=== PATIENT | male | born 1945 | race Caucasian/White ===

== ENCOUNTER 2019-02-02 17:09 | Emergency (ER) | payer MEDICARE ==
[2019-02-02] MEDS ORDERED: SODIUM CHLORIDE 0.9% 1,000 ML IV STA (17:16)
--- NOTE | 2019-02-02 17:17 | ED ---
Weakness HPI - General Stated complaint: Weakness Time Seen by Provider: 02/02/19 17:12 Source: RN notes reviewed, old records reviewed - History of Present Illness Initial comments: This is a 73-year-old male to the ER for evaluation. This male presents today for evaluation in regards to illogical complaint. Patient was shopping, onset of symptoms he believes were around 1630. Patient was walking to his car and had slurred speech left arm weakness left leg weakness, not feel comfortable driving called EMS and was brought to emergency room for evaluation. Patient denies history of CVA. Does have history of heart disease, not currently on blood thinners. No recent trauma or surgery MD Complaint: focal weakness (L face, L leg, L arm) -: hour(s) (1.5) Location: LUE, LLE, face (Left) Severity: moderate Severity scale (1-10): 4 Quality: numbness, other (weakness) Consistency: constant Improves with: none Worsens with: none Associated Symptoms: denies other symptoms - Related Data Home Medications Medication Instructions Recorded Confirmed ALPRAZolam [Xanax] 0.25 mg PO HS PRN 02/20/15 02/02/19 Potassium Chloride [Klor-Con 20] 20 meq PO BID 02/20/15 02/02/19 Pramipexole Di-HCl [Mirapex] 1.5 mg PO HS 02/20/15 02/02/19 Simvastatin [Zocor] 10 mg PO QAM 02/20/15 02/02/19 Amiodarone HCl [Pacerone] 100 mg PO DAILY 02/02/19 02/02/19 DULoxetine HCL [Cymbalta] 60 mg PO BID 02/02/19 02/02/19 Gabapentin [Neurontin] 100 mg PO TID 02/02/19 02/02/19 HYDROcodone/APAP 5-325MG [Kirvin 1 tab PO Q4H 02/02/19 02/02/19 5-325] Hydrocortisone 10 mg PO DIRECTED 02/02/19 02/02/19 Hydrocortisone 15 mg PO DAILY 02/02/19 02/02/19 Levothyroxine Sodium [Synthroid] 112 mcg PO DAILY 02/02/19 02/02/19 Memantine [Namenda] 10 mg PO BID 02/02/19 02/02/19 Midodrine [ProAmatine] 7.5 mg PO TID 02/02/19 02/02/19 Mirabegron [Myrbetriq] 50 mg PO DAILY 02/02/19 02/02/19 Nitroglycerin Sl Tabs [Nitrostat] 0.4 mg SL Q5M 02/02/19 02/02/19 Omeprazole [PriLOSEC] 40 mg PO DAILY 02/02/19 02/02/19 Allergies Allergy/AdvReac Type Severity Reaction Status Date / Time TAPE Allergy KAPLAN Uncoded 07/27/15 14:07 SKINS-PAPER TAPE IS OK Review of Systems ROS Statement: Those systems with pertinent positive or pertinent negative responses have been documented in the HPI. ROS Other: All systems not noted in ROS Statement are negative. Past Medical History Past Medical History: Coronary Artery Disease (CAD), Heart Failure, Osteoarthritis (OA), Prostate Disorder, Thyroid Disorder Additional Past Medical History / Comment(s): HIATAL HERNIA, MULTIPLE INTUSSUSCEPTIONS IN LOWER SM. BOWEL. BPH,HYPOTENSION, CURRENT INGUINAL HERNIA History of Any Multi-Drug Resistant Organisms: MRSA Date of last positivie culture/infection: 2012 MDRO Source:: RT SHOULDER REPLACEMENT INCISION INFECTION Past Surgical History: Back Surgery, Bariatric Surgery, Cholecystectomy, Heart Catheterization, Heart Catheterization With Stent, Hernia Repair, Joint Replacement, Orthopedic Surgery, Pacemaker Additional Past Surgical History / Comment(s): TAMMI-EN-Y,LAMINECTOMY,LT TKA X2,RT TKA,LT SHAMA X2,I & D LT HIP,RT SHOULDER REPLACEMENT,PANNICULE CTOMY,PACEMAKERX2,TA CATARACTS HERNIA REPAIR X2, 10-8-15 lap inguinal hernia repair Past Anesthesia/Blood Transfusion Reactions: Previous Problems w/ Anesthesia Additional Past Anesthesia/Blood Transfusion Reaction / Comment(s): HAS TROUBLE REGULATING LOW B/P AFTER SURGERY, HAS NEVER HAD BLOOD TRANSFUSION. Date of Last Stent Placement:: FEBRUARY 2001 Type of Cardiac Device: Permanent Pacemaker Device Placement Date:: JUN 2013 Past Psychological History: Anxiety, Depression Smoking Status: Former smoker Past Alcohol Use History: None Reported Additional Past Alcohol Use History / Comment(s): SMOKED FOR SHORT TIME IN AGE 18'S Past Drug Use History: None Reported - Past Family History Father Family Medical History: Cancer Additional Family Medical History / Comment(s): LIVER,PANCREAS,HEART PROBLEMS Mother Family Medical History: Congestive Heart Failure (CHF) General Exam - General Exam Comments Initial Comments: NIH 5, L facial droop, L arm and L leg weakness General appearance: alert, in no apparent distress Head exam: Present: atraumatic, normocephalic, normal inspection Eye exam: Present: normal appearance, PERRL, EOMI. Absent: scleral icterus, conjunctival injection, periorbital swelling ENT exam: Present: normal exam, mucous membranes moist Neck exam: Present: normal inspection. Absent: tenderness, meningismus, lymphadenopathy Respiratory exam: Present: normal lung sounds bilaterally. Absent: respiratory distress, wheezes, rales, rhonchi, stridor Cardiovascular Exam: Present: regular rate, normal rhythm, normal heart sounds. Absent: systolic murmur, diastolic murmur, rubs, gallop, clicks GI/Abdominal exam: Present: soft, normal bowel sounds. Absent: distended, tenderness, guarding, rebound, rigid Extremities exam: Present: normal inspection, full ROM, normal capillary refill. Absent: tenderness, pedal edema, joint swelling, calf tenderness Back exam: Present: normal inspection Neurological exam: Present: alert, oriented X3, CN II-XII intact Psychiatric exam: Present: normal affect, normal mood Skin exam: Present: warm, dry, intact, normal color. Absent: rash Course Vital Signs 02/02/19 02/02/19 02/02/19 17:13 17:15 17:30 Temperature 98.2 F Pulse Rate 82 64 65 Respiratory 20 18 16 Rate Blood Pressure 113/62 115/64 111/57 O2 Sat by Pulse 95 95 94 L Oximetry 02/02/19 02/02/19 02/02/19 18:00 18:15 18:21 Temperature Pulse Rate 66 64 66 Respiratory 16 18 16 Rate Blood Pressure 104/62 112/62 112/62 O2 Sat by Pulse 94 L 95 95 Oximetry 02/02/19 02/02/19 18:30 18:45 Temperature Pulse Rate 64 62 Respiratory 16 16 Rate Blood Pressure 116/63 120/62 O2 Sat by Pulse 96 96 Oximetry - Reevaluation(s) Reevaluation #1: 02/02/19 17:58 Code stroke was paged Reevaluation #2: 02/02/19 18:[address] Taylor regarding patient, concerning being low NIH, extreme of age, improving symptoms and low blood sugar to treatment blood sugar and see outpatient improves. Patient did not have any improvement with treating of blood sugar, were still able to give TPA inside guidelines and patient did request received TPA Did speak at length patient at length regarding pros and cons, benefits as well as negative effects of TPA Reevaluation #3: 02/02/19 18:59 [facility], [facility] are acceptable of transfer - Consultations Consultation #1: Spoke with Dr. Taylor again confirming and informing that we did decide to go ahead with TPA regarding this patient EKG Findings - EKG Comments: EKG Findings:: EKG shows sinus rhythm rate of 65, FL 220, QRS 80, QTC 4:30 Medical Decision Making - Medical Decision Making 73 male the ER for evaluation of neurological complaint, positive CVA. CT brain CTA negative. Patient given TPA transferred to [facility] for neuro ICU - Lab Data Result diagrams: 02/02/19 17:56 02/02/19 17:56 Lab Results 02/02/19 02/02/19 02/02/19 Range/Units 17:56 17:56 17:56 WBC 6.9 (3.8-10.6) k/uL RBC 3.99 L (4.30-5.90) m/uL Hgb 12.9 L (13.0-17.5) gm/dL Hct 40.3 (39.0-53.0) % MCV 101.0 H (80.0-100.0) fL MCH 32.4 (25.0-35.0) pg MCHC 32.1 (31.0-37.0) g/dL RDW 14.8 (11.5-15.5) % Plt Count 269 (150-450) k/uL Neutrophils % 77 % Lymphocytes % 14 % Monocytes % 7 % Eosinophils % 1 % Basophils % 0 % Neutrophils # 5.4 (1.3-7.7) k/uL Lymphocytes # 0.9 L (1.0-4.8) k/uL Monocytes # 0.5 (0-1.0) k/uL Eosinophils # 0.1 (0-0.7) k/uL Basophils # 0.0 (0-0.2) k/uL Macrocytosis Slight PT (9.0-12.0) sec INR (<1.2) APTT (22.0-30.0) sec Sodium 137 (137-145) mmol/L Potassium 4.4 (3.5-5.1) mmol/L Chloride 107 (98-107) mmol/L Carbon Dioxide 22 (22-30) mmol/L Anion Gap 8 mmol/L BUN 20 (9-20) mg/dL Creatinine 0.72 (0.66-1.25) mg/dL Est GFR (CKD-EPI)AfAm >90 (>60 ml/min/1.73 sqM) Est GFR (CKD-EPI)NonAf >90 (>60 ml/min/1.73 sqM) Glucose 48 L* (74-99) mg/dL POC Glucose (mg/dL) (75-99) mg/dL POC Glu Field Sales Engineer ID Calcium 9.1 (8.4-10.2) mg/dL Total Bilirubin 0.7 (0.2-1.3) mg/dL AST 35 (17-59) U/L ALT 40 (21-72) U/L Alkaline Phosphatase 120 (38-126) U/L Total Creatine Kinase 77 (55-170) U/L CK-MB (CK-2) 1.8 (0.0-2.4) ng/mL CK-MB (CK-2) Rel Index 2.3 Troponin I <0.012 (0.000-0.034) ng/mL Total Protein 6.1 L (6.3-8.2) g/dL Albumin 3.9 (3.5-5.0) g/dL 02/02/19 02/02/19 02/02/19 Range/Units 17:56 18:18 18:42 WBC (3.8-10.6) k/uL RBC (4.30-5.90) m/uL Hgb (13.0-17.5) gm/dL Hct (39.0-53.0) % MCV (80.0-100.0) fL MCH (25.0-35.0) pg MCHC (31.0-37.0) g/dL RDW (11.5-15.5) % Plt Count (150-450) k/uL Neutrophils % % Lymphocytes % % Monocytes % % Eosinophils % % Basophils % % Neutrophils # (1.3-7.7) k/uL Lymphocytes # (1.0-4.8) k/uL Monocytes # (0-1.0) k/uL Eosinophils # (0-0.7) k/uL Basophils # (0-0.2) k/uL Macrocytosis PT 9.7 (9.0-12.0) sec INR 0.9 (<1.2) APTT 23.3 (22.0-30.0) sec Sodium (137-145) mmol/L Potassium (3.5-5.1) mmol/L Chloride (98-107) mmol/L Carbon Dioxide (22-30) mmol/L Anion Gap mmol/L BUN (9-20) mg/dL Creatinine (0.66-1.25) mg/dL Est GFR (CKD-EPI)AfAm (>60 ml/min/1.73 sqM) Est GFR (CKD-EPI)NonAf (>60 ml/min/1.73 sqM) Glucose (74-99) mg/dL POC Glucose (mg/dL) 59 L 188 H (75-99) mg/dL POC Glu Field Sales Engineer Liliya Arnett Brittany Calcium (8.4-10.2) mg/dL Total Bilirubin (0.2-1.3) mg/dL AST (17-59) U/L ALT (21-72) U/L Alkaline Phosphatase (38-126) U/L Total Creatine Kinase (55-170) U/L CK-MB (CK-2) (0.0-2.4) ng/mL CK-MB (CK-2) Rel Index Troponin I (0.000-0.034) ng/mL Total Protein (6.3-8.2) g/dL Albumin (3.5-5.0) g/dL - Radiology Data Radiology results: report reviewed (CT brain CTA had not negative for acute disease), image reviewed Critical Care Time Critical Care Time: Yes Total Critical Care Time: 65 Disposition Clinical Impression: Cerebrovascular accident Disposition: OTHER INSTITUTION NOT DEFINED Condition: Fair Is patient prescribed a controlled substance at d/c from ED?: No Referrals: Shahrzad Castillo MD [Primary Care Provider] - 1-2 days - Out of Hospital Transfer - Req. Specs Out of Hospital Transfer - Requested Specifics: Other Emergency Center ([facility]
[2019-02-02 17:27] VITALS: TEMP 98.2
[2019-02-02 18:09] LABS: Basophils % (A) 0 %; Creatine Kinase 77 U/L (55-170); Eosinophils # (A) 0.1 k/uL (0-0.7); Eosinophils % (A) 1 %; HCT 40.3 % (39.0-53.0); HGB 12.9 gm/dL (13.0-17.5); Lymphocytes # (A) 0.9 k/uL (1.0-4.8); Lymphocytes % (A) 14 %; MCH 32.4 pg (25.0-35.0); MCHC 32.1 g/dL (31.0-37.0); Macrocytosis Slight; Mean Platelet Volume 6.4; Monocytes # (A) 0.5 k/uL (0-1.0); Monocytes % (A) 7 %; Neutrophils # (A) 5.4 k/uL (1.3-7.7); Neutrophils % (A) 77 %; Platelet Count 269 k/uL (150-450); RBC 3.99 m/uL (4.30-5.90); RDW 14.8 % (11.5-15.5); WBC 6.9 k/uL (3.8-10.6)
[2019-02-02 18:10] LABS: ALT 40 U/L (21-72); AST 35 U/L (17-59); Albumin 3.9 g/dL (3.5-5.0); Alkaline Phosphatase 120 U/L (38-126); Anion Gap 8 mmol/L; Blood Urea Nitrogen 20 mg/dL (9-20); Calcium 9.1 mg/dL (8.4-10.2); Carbon Dioxide 22 mmol/L (22-30); Chloride 107 mmol/L (98-107); INR 0.9 (<1.2); Partial Thromboplastin Time 23.3 sec (22.0-30.0); Potassium 4.4 mmol/L (3.5-5.1); Prothrombin Time 9.7 sec (9.0-12.0); Sodium 137 mmol/L (137-145); Total Bilirubin 0.7 mg/dL (0.2-1.3); Total Protein 6.1 g/dL (6.3-8.2)
[2019-02-02 18:21] LABS: Glucose,Whole Blood 59 mg/dL (75-99)
[2019-02-02 18:22] LABS: Creatine Kinase MB 1.8 ng/mL (0.0-2.4); Troponin I <0.012 ng/mL (0.000-0.034)
[2019-02-02] MEDS ORDERED: DEXTROSE 50%-WATER 50 ML SYRINGE IVP STA (18:22)
[2019-02-02] MEDS ORDERED: ALTEPLASE 73 MG in EMPTY BAG 1 BAG IV STA (18:24)
[2019-02-02] MEDS ORDERED: ALTEPLASE BOLUS 8 MG in EMPTY SYRINGE 1 SYR IV STA (18:24)
[2019-02-02 18:27] LABS: Glucose 48 mg/dL (74-99)
--- NOTE | 2019-02-02 18:32 | CT ---
EXAMINATION: CT brain wo con DATE AND TIME: 02/02/2019 6:16 PM CLINICAL INDICATION: PHH; pain TECHNIQUE: Standard departmental protocol.; ; COMPARISON: None FINDINGS: The calvarium is intact. There is no intracranial hemorrhage. There is no intracranial mass or mass effect. No definite new intra-axial or extra-axial attenuation defect. The paranasal sinuses, middle ear cavities, and mastoid sinus air cells are clear. The orbits are unremarkable. IMPRESSION: NO ACUTE PROCESS.
[2019-02-02 18:43] LABS: Glucose,Whole Blood 188 mg/dL (75-99)
--- NOTE | 2019-02-02 19:07 | CT ---
EXAMINATION TYPE: CT angio head neck contrast and with 3-D reconstruction renderings DATE OF EXAM: 02/02/2019 HISTORY: left sided weakness COMPARISON: Acute process. CT DLP: 405 mGycm. Automated Exposure Control for Dose Reduction was Utilized. TECHNIQUE: CTA scan of the neck is performed with IV Contrast, patient injected with 65 mL of Isovue 370, axial images are obtained, coronal and sagittal reformatted images are reviewed. Three-D recons tructed images are created on an independent workstation and reviewed. NECK CTA FINDINGS: The bilateral carotid arterial systems are opacified, without significant stenosis or dissection or a neurysm. Mild tortuosity noted. The bilateral vertebral arterial systems are opacified, without significant stenosis or dissection or aneurysm. The soft tissues of the neck and the visualized upper thoracic structures are negative for incidental findings. The visualized skeletal structures are negative for acute findings. HEAD CTA FINDINGS: Both the anterior and posterior circulation are well opacified and are negative for significant steno sis or aneurysm or dissection. No acute intra-axial or extra-axial findings. No incidentals. IMPRESSION: No significant abnormality is seen.
[2019-02-02 19:17] LABS: Appearance,Urine Clear (Clear); Bilirubin,Urine Negative (Negative); Blood,Urine Negative (Negative); Color,Urine Light Yellow; Glucose,Urine (UA) Trace (Negative); Ketones,Urine Negative (Negative); Leukocyte Esterase,Urine Negative (Negative); Nitrite,Urine Negative (Negative); Protein,Urine Negative (Negative); Specific Gravity,Urine 1.014 (1.001-1.035); Urobilinogen,Urine <2.0 mg/dL (<2.0)
[2019-02-02 19:20] VITALS: BP 135/72; PULSE 65; RESP 18
== END 2019-02-02 19:25 | disposition other institution (70) ==
LOC: EC 17:09
DX: I63.9 Cerebral infarction, unspecified (principal); I25.10 Atherosclerotic heart disease of native coronary artery without angina pectoris; I50.9 Heart failure, unspecified; M19.90 Unspecified osteoarthritis, unspecified site; N40.0 Benign prostatic hyperplasia without lower urinary tract symptoms; E07.9 Disorder of thyroid, unspecified; F32.9 Major depressive disorder, single episode, unspecified; F41.9 Anxiety disorder, unspecified; Z87.891 Personal history of nicotine dependence; Z86.14 Personal history of Methicillin resistant Staphylococcus aureus infection; Z79.891 Long term (current) use of opiate analgesic; Z79.890 Hormone replacement therapy; Z79.899 Other long term (current) drug therapy; Z91.048 Other nonmedicinal substance allergy status; Z95.0 Presence of cardiac pacemaker; Z95.5 Presence of coronary angioplasty implant and graft; Z96.653 Presence of artificial knee joint, bilateral; Z96.611 Presence of right artificial shoulder joint
CPT/HCPCS: 36415; 93005; 80053; 82550; 82553; 84484; 85025; 85610; 85730; 81003; 87086; 70496; 70450; 70498; 99291; 37195; 96375; 96361; J2997; Q9967

== ENCOUNTER 2024-05-28 23:17 | Emergency (ER) | payer MEDICARE ==
[2024-05-29] MEDS ORDERED: HYDROmorphone 0.5 MG/0.5 ML SYRINGE ONE ×3 (00:42→05:22)
[2024-05-29] MEDS ORDERED: PRAMIPEXOLE 1 MG TAB ONE (02:28)
--- NOTE | 2024-06-28 15:27 | CT ---
EXAM: CT Head Without Intravenous Contrast CLINICAL HISTORY: pt fell TECHNIQUE: Axial computed tomography images of the head/brain without intravenous contrast. CTDI is 45.1 mGy and DLP is 1005 mGy-cm. This CT exam was performed using one or more of the following dose reduction techniques: automated exposure control, adjustment of the mA and/or kV according to patient size, and/or use of iterative reconstruction technique. COMPARISON: No relevant prior studies available. FINDINGS: Brain: Left holohemispheric acute on chronic trace subdural hematoma. No significant herniation. Ventricles:No hydrocephalus. Bones/joints:Unremarkable. Soft tissues:Unremarkable. Sinuses:No air fluid level. Mastoid air cells:Clear. IMPRESSION: Left holohemispheric acute on chronic trace subdural hematoma. No significant herniation. EXAM: CT Cervical Spine Without Intravenous Contrast CLINICAL HISTORY: pt fell TECHNIQUE: Axial computed tomography images of the cervical spine without intravenous contrast. CTDI is 13.5 mGy and DLP is 394.3 mGy-cm. This CT exam was performed using one or more of the following dose reduction techniques: automated exposure control, adjustment of the mA and/or kV according to patient size, and/or use of iterative reconstruction technique. COMPARISON: No relevant prior studies available. FINDINGS: Prior posterior fusion and laminectomies. Vertebrae:No acute fracture. Bridging anterior osteophytes. Osteopenia. Discs/spinal canal/neural foramina: Severe degenerative changes. Soft tissues:No prevertebral swelling. IMPRESSION: No acute fracture or subluxation. Radiologist: Irene Velasquez MD Electronically Signed: 05/29/24 03:33 Study ready at 02:38 and initial results transmitted at 03:33 Communications: Clear Time Type Notes 05/29/24 04:14 Verify Receipt Verified receipt with [facility] for Dr. Bermudez on 05/29 04:14 (-04:00) ARNULFO
--- NOTE | 2024-06-29 09:42 | CT ---
EXAM: CT Lumbar Spine Without Intravenous Contrast CLINICAL HISTORY: fall TECHNIQUE: Axial computed tomography images of the lumbar spine without intravenous contrast. CTDI is 47.3 mGy and DLP is 2097.3 mGy-cm. This CT exam was performed using one or more of the following dose reduction techniques: automated exposure control, adjustment of the mA and/or kV according to patient size, and/or use of iterative reconstruction technique. COMPARISON: No relevant prior studies available. FINDINGS: Fused vertebral bodies and sacroiliac joints, correlate with ankylosing spondylitis. Posterior fusion in the thoracolumbar spine. Prior laminectomies. Vertebrae:No acute fracture. No sagittal subluxation. Osteopenia. Chronic moderate wedging deformity of T12 likely from remote trauma. Discs/spinal canal/neural foramina:Degenerative changes most prominent at L2-3 likely due to adjacent segment disease. Soft tissues:Right basilar atelectasis. IMPRESSION: No acute fracture. Chronic moderate wedging deformity of T12 likely from remote trauma. Radiologist: Irene Velasquez MD Electronically Signed: 05/29/24 06:30 Study ready at 04:33 and initial results transmitted at 06:30 [facility]
== END 2024-05-29 05:31 | disposition short-term general hospital (02) ==
LOC: EC 23:17
CPT/HCPCS: 70450; 72125; 72131; 99285

== ENCOUNTER 2024-07-04 08:27 | Emergency (ER) | payer MEDICARE ==
[2024-07-04 08:44] VITALS: TEMP 97.8
--- NOTE | 2024-07-04 09:45 | ED ---
Extremity Problem HPI - General Chief complaint: Recheck/Abnormal Lab/Rx Stated complaint: Possible DBT Time Seen by Provider: 07/04/24 09:40 Source: patient, EMS, RN notes reviewed Mode of arrival: EMS Limitations: no limitations - History of Present Illness Initial comments: This is an 79-year-old male who presents to the emergency department for right leg pain. Patient has a history of chronic bilateral lower extremity swelling secondary to CHF, but states that starting yesterday he started to develop pain in the right calf that was new. He did just go on a recent road trip across the [facility] a couple of days ago and his states that he is fairly sedentary. Patient has dementia and is a rather poor historian. States that he might be somewhat more short of breath than usual but is not entirely sure. Denies any chest pain. He was sent from [place] to be evaluated for a DVT. Not taking any blood thinners. MD Complaint: extremity pain - Related Data Home Medications Medication Instructions Recorded Confirmed ALPRAZolam [Xanax] 0.25 mg PO HS PRN 02/20/15 02/02/19 Potassium Chloride [Klor-Con 20] 20 meq PO BID 02/20/15 02/02/19 Pramipexole Di-HCl [Mirapex] 1.5 mg PO HS 02/20/15 02/02/19 Simvastatin [Zocor] 10 mg PO QAM 02/20/15 02/02/19 Amiodarone HCl [Pacerone] 100 mg PO DAILY 02/02/19 02/02/19 DULoxetine HCL [Cymbalta] 60 mg PO BID 02/02/19 02/02/19 Gabapentin [Neurontin] 100 mg PO TID 02/02/19 02/02/19 HYDROcodone/APAP 5-325MG [[place] 1 tab PO Q4H 02/02/19 02/02/19 5-325] Hydrocortisone 10 mg PO DIRECTED 02/02/19 02/02/19 Hydrocortisone 15 mg PO DAILY 02/02/19 02/02/19 Levothyroxine Sodium [Synthroid] 112 mcg PO DAILY 02/02/19 02/02/19 Memantine [Namenda] 10 mg PO BID 02/02/19 02/02/19 Midodrine [ProAmatine] 7.5 mg PO TID 02/02/19 02/02/19 Mirabegron [Myrbetriq] 50 mg PO DAILY 02/02/19 02/02/19 Nitroglycerin Sl Tabs [Nitrostat] 0.4 mg SL Q5M 02/02/19 02/02/19 Omeprazole [PriLOSEC] 40 mg PO DAILY 02/02/19 02/02/19 Previous Rx's Medication Instructions Recorded Apixaban [Eliquis Starter Pack 5 - 10 mg PO DIRECTED 30 Days 07/04/24 (for VTE)] #1 each Allergies Allergy/AdvReac Type Severity Reaction Status Date / Time TAPE Allergy KAPLAN Uncoded 07/04/24 08:44 SKINS-PAPER TAPE IS OK Review of Systems ROS Statement: Those systems with pertinent positive or pertinent negative responses have been documented in the HPI. ROS Other: All systems not noted in ROS Statement are negative. Past Medical History Past Medical History: Coronary Artery Disease (CAD), Heart Failure, Osteoarthritis (OA), Prostate Disorder, Thyroid Disorder Additional Past Medical History / Comment(s): HIATAL HERNIA, MULTIPLE INTUSSUSCEPTIONS IN LOWER SM. BOWEL. BPH,HYPOTENSION, CURRENT INGUINAL HERNIA History of Any Multi-Drug Resistant Organisms: MRSA Date of last positivie culture/infection: 2012 MDRO Source:: RT SHOULDER REPLACEMENT INCISION INFECTION Past Surgical History: Back Surgery, Bariatric Surgery, Cholecystectomy, Heart Catheterization, Heart Catheterization With Stent, Hernia Repair, Joint Replace ment, Orthopedic Surgery, Pacemaker Additional Past Surgical History / Comment(s): TAMMI-EN-Y,LAMINECTOMY,LT TKA X2,RT TKA,LT SHAMA X2,I & D LT HIP,RT SHOULDER REPLACEMENT,PANNI CULECTOMY,PACEMAKERX2,TA CATARACTS HERNIA REPAIR X2, 10-8-15 lap inguinal hernia repair Past Anesthesia/Blood Transfusion Reactions: Previous Problems w/ Anesthesia Additional Past Anesthesia/Blood Transfusion Reaction / Comment(s): HAS TROUBLE REGULATING LOW B/P AFTER SURGERY, HAS NEVER HAD BLOOD TRANSFUSION. Date of Last Stent Placement:: FEBRUARY 2001 Type of Cardiac Device: Permanent Pacemaker Device Placement Date:: JUN 2013 Past Psychological History: Anxiety, Depression Past Alcohol Use History: None Reported Past Drug Use History: None Reported - Past Family History Father Family Medical History: Cancer Additional Family Medical History / Comment(s): LIVER,PANCREAS,HEART PROBLEMS Mother Family Medical History: Congestive Heart Failure (CHF) General Exam Limitations: no limitations General appearance: alert, in no apparent distress Head exam: Present: atraumatic, normocephalic, normal inspection Respiratory exam: Present: normal lung sounds bilaterally. Absent: respiratory distress, wheezes, rales, rhonchi, stridor Cardiovascular Exam: Present: regular rate, normal rhythm, normal heart sounds. Absent: systolic murmur, diastolic murmur, rubs, gallop, clicks Extremities exam: Present: other (Swelling to the bilateral lower extremities, slightly worse on the right, with tenderness to the superior aspect of the calf. 2+ DP and PT pulses) Neurological exam: Present: alert, oriented X3, CN II-XII intact Psychiatric exam: Present: normal affect, normal mood Course Vital Signs 07/04/24 07/04/24 08:39 14:19 Temperature 97.8 F Pulse Rate 89 82 Respiratory 20 18 Rate Blood Pressure 98/58 106/61 O2 Sat by Pulse 97 97 Oximetry Medical Decision Making - Medical Decision Making This is an 79-year-old male who presents to the emergency department for right lower extremity pain. Was pt. sent in by a medical professional or institution? @ -Quinn Did you speak to anyone other than the patient for history? @ -No Did you review nursing and triage notes? @ -Yes, and I agree, it is accurate with regards to the patient's symptoms. Were old charts reviewed? @ -No Differential Diagnosis? @ -Differential Leg Pain: Leg fracture, leg sprain, DVT, PVD, arterial insufficiency, iliac artery aneurys m, cellulitis, compartment syndrome, tendinopathy, nerve entrapment, piriformis syndrome, osteoarthritis, rhabdomyolysis, myositis, cramping from an electrolyte imbalance, this is not meant to be an all inclusive list. EKG interpreted by me (3pts min.)? @ -Not obtained X-rays interpreted by me (1pt min.)? @ -Not obtained CT interpreted by me (1pt min.)? @ -CTA of the chest obtained. My interpretation identifies no evidence of a pulmonary embolus. U/S interpreted by me (1pt. min.)? @ -Duplex ultrasound of the right lower extremity obtained. My interpretation identifies a DVT. What testing was considered but not performed? (CT, X-rays, U/S, labs)? Why? @ -None What meds were considered but not given? Why? @ -None Did you discuss the management of the patient with other professionals? @ -No Did you reconcile home meds? @ -No Was smoking cessation discussed for >3mins.? @ -No Was critical care preformed (if so, how long)? @ -No Were there social determinants of health that impacted care today? How? (Homelessness, low income, unemployed, alcoholism, drug addiction, transportation, low edu. Level, literacy, decrease access to med. care, senior living, rehab)? @ -No Was there de-escalation of care discussed even if they declined? (Discuss DNR or withdrawal of care, Hospice)? @ -No What co-morbidities impacted this encounter? (DM, HTN, Smoking, COPD, CAD, Cancer, CVA, Hep., AIDS, mental health diagnosis, sleep apnea, morbid obesity)? @ -CAD, osteoarthritis Was patient admitted / discharged? @ -Discharged. Lab work demonstrates mild hyponatremia and was otherwise unremarkable. Duplex ultrasound of the right lower extremity demonstrates the appearance of a nonocclusive DVT to the right lower femoral vein. They advised that this is more suggestive of a chronic DVT. However, patient's pain just started yesterday. Examination was limited due to patient's inability to tolerate much pressure on the lower thigh and constantly moving. Given his questionable increased shortness of breath, we did proceed with a CTA of the chest. Evaluation was somewhat limited, however there was no definitive pulmonary embolus identified. He did have some prominent bibasilar atelectasis and patchy changes at the right medial base. However, symptoms not suggestive of developing pneumonia. Additionally, there is also possible soft tissue thickening in the ascending colon. This was reviewed with the patient and his and advised that he will likely need a colonoscopy to exclude a colon mass. This can be managed on an outpatient basis. Will start patient on Eliquis for DVT to the right lower extremity. Eliquis starter pack prescribed. Advised follow-up with his PCP and vascular surgery. Patient discharged home in stable condition. Case discussed with ED attending Dr. Perez. Return precautions reviewed in depth, the patient is instructed to return to the emergency department with any new, worsening, or concerning symptoms. Patient verbalized understanding. Undiagnosed new problem with uncertain prognosis? @ -None Drug Therapy requiring intensive monitoring for toxicity (Heparin, Nitro, Insulin, Cardizem)? @ -None Were any procedures done? @ -None Diagnosis/symptom? @ -DVT right leg Acute, or Chronic, or Acute on Chronic? @ -Acute Uncomplicated (without systemic symptoms) or Complicated (systemic symptoms)? @ -Uncomplicated Side effects of treatment? @ -None Exacerbation, Progression, or Severe Exacerbation] @ -Not applicable Poses a threat to life or bodily function? @ -Unlikely - Lab Data Result diagrams: 07/04/24 11:32 07/04/24 11:32 Lab Results 07/04/24 07/04/24 07/04/24 Range/Units 11:32 11:32 11:32 WBC 7.0 (3.8-10.6) k/uL RBC 3.13 L (4.30-5.90) m/uL Hgb 10.8 L (13.0-17.5) gm/dL Hct 32.1 L (39.0-53.0) % MCV 102.5 H (80.0-100.0) fL MCH 34.3 (25.0-35.0) pg MCHC 33.5 (31.0-37.0) g/dL RDW 16.6 H (11.5-15.5) % Plt Count 229 (150-450) k/uL MPV 7.3 Neutrophils % 80 % Lymphocytes % 12 % Monocytes % 4 % Eosinophils % 3 % Basophils % 0 % Neutrophils # 5.6 (1.3-7.7) k/uL Lymphocytes # 0.8 L (1.0-4.8) k/uL Monocytes # 0.3 (0-1.0) k/uL Eosinophils # 0.2 (0-0.7) k/uL Basophils # 0.0 (0-0.2) k/uL Anisocytosis Slight Macrocytosis Moderate ESR 3 (0-20) mm/Hr PT (10.0-12.5) sec INR (<1.2) APTT (22.0-30.0) sec Sodium 128 L (137-145) mmol/L Potassium 5.1 (3.5-5.1) mmol/L Chloride 96 L (98-107) mmol/L Carbon Dioxide 26 (22-30) mmol/L Anion Gap 6 mmol/L BUN 19 (9-20) mg/dL Creatinine 0.60 L (0.66-1.25) mg/dL Est GFR (CKD-EPI)AfAm >90 (>60 ml/min/1.73 sqM) Est GFR (CKD-EPI)NonAf >90 (>60 ml/min/1.73 sqM) Glucose 77 (74-99) mg/dL Plasma Lactic Acid Benson 1.3 (0.7-2.0) mmol/L Calcium 8.8 (8.4-10.2) mg/dL Total Bilirubin 1.6 H (0.2-1.3) mg/dL AST 61 H (17-59) U/L ALT 28 (4-49) U/L Alkaline Phosphatase 142 H (38-126) U/L Troponin I (0.000-0.034) ng/mL C-Reactive Protein 2.2 H (<1.0) mg/dL NT-Pro-B Natriuret Pep 1310 pg/mL Total Protein 6.0 L (6.3-8.2) g/dL Albumin 3.6 (3.5-5.0) g/dL 07/04/24 07/04/24 Range/Units 11:32 12:36 WBC (3.8-10.6) k/uL RBC (4.30-5.90) m/uL Hgb (13.0-17.5) gm/dL Hct (39.0-53.0) % MCV (80.0-100.0) fL MCH (25.0-35.0) pg MCHC (31.0-37.0) g/dL RDW (11.5-15.5) % Plt Count (150-450) k/uL MPV Neutrophils % % Lymphocytes % % Monocytes % % Eosinophils % % Basophils % % Neutrophils # (1.3-7.7) k/uL Lymphocytes # (1.0-4.8) k/uL Monocytes # (0-1.0) k/uL Eosinophils # (0-0.7) k/uL Basophils # (0-0.2) k/uL Anisocytosis Macrocytosis ESR (0-20) mm/Hr PT 11.4 (10.0-12.5) sec INR 1.0 (<1.2) APTT 26.1 (22.0-30.0) sec Sodium (137-145) mmol/L Potassium (3.5-5.1) mmol/L Chloride (98-107) mmol/L Carbon Dioxide (22-30) mmol/L Anion Gap mmol/L BUN (9-20) mg/dL Creatinine (0.66-1.25) mg/dL Est GFR (CKD-EPI)AfAm (>60 ml/min/1.73 sqM) Est GFR (CKD-EPI)NonAf (>60 ml/min/1.73 sqM) Glucose (74-99) mg/dL Plasma Lactic Acid Benson (0.7-2.0) mmol/L Calcium (8.4-10.2) mg/dL Total Bilirubin (0.2-1.3) mg/dL AST (17-59) U/L ALT (4-49) U/L Alkaline Phosphatase (38-126) U/L Troponin I <0.012 (0.000-0.034) ng/mL C-Reactive Protein (<1.0) mg/dL NT-Pro-B Natriuret Pep pg/mL Total Protein (6.3-8.2) g/dL Albumin (3.5-5.0) g/dL - Radiology Data Radiology results: report reviewed, image reviewed Disposition Clinical Impression: Right leg DVT Disposition: HOME SELF-CARE Instructions (If sedation given, give patient instructions): Apixaban (By mouth), Deep Vein Thrombosis (ED) Additional Instructions: Return to the emergency department with any new, worsening, or concerning symptoms. Take the Eliquis as prescribed for the next 30 days. Follow-up with vascular surgery listed below or one closer to where you live. Take Tylenol as needed for pain relief. Take the Tylenol with codeine provided in the emergency department sparingly when your pain is the most severe. Follow up with your primary care provider in 1-2 days. Prescriptions: Apixaban [Eliquis Starter Pack (for VTE)] 5 - 10 mg PO DIRECTED 30 Days #1 each Is patient prescribed a controlled substance at d/c from ED?: No Referrals: Shahrzad Castillo MD [Primary Care Provider] - 1-2 days Ronnie Luevano DO [STAFF PHYSICIAN] - 1-2 days Time of Disposition: 13:38
--- NOTE | 2024-07-04 10:07 | US ---
EXAMINATION TYPE: US venous doppler duplex LE RT DATE OF EXAM: 07/04/2024 9:49 AM COMPARISON: NONE CLINICAL INDICATION: Male, 79 years old with history of Right calf pain; right calf pain SIDE PERFORMED: right TECHNIQUE: The lower extremity deep venous system is examined utilizing real time linear array sonog yamilet with graded compression, doppler sonography and color-flow sonography. VESSELS IMAGED: Common Femoral Vein Deep Femoral Vein Greater Saphenous Vein * Femoral Vein Popliteal Vein Small Saphenous Vein * (* superficial vessels) Sonography notes: Right Leg: *Technical limitations, patient scanned in wheelchair, unable to tolerate any pressure on lower thigh, and constantly moving. Appears to be non-occlusive DVT right lower femoral vein IMPRESSION: Exam limitations as above. The appearance of nonocclusive DVT lower right femoral vein. Nonocclusive clot is suggestive of a more chronic DVT. Clinically correlate. [facility], , 07/04/2024 10:05 AM
[2024-07-04] MEDS: Acetaminophen-Codeine 300-30mg TAB PO STA (11:35)
[2024-07-04] MEDS: KETOROLAC 15 MG/ML 1 ML VIAL IVP STA (11:36)
[2024-07-04 11:38] LABS: Anisocytosis Slight; Basophils % (A) 0 %; Eosinophils # (A) 0.2 k/uL (0-0.7); Eosinophils % (A) 3 %; HCT 32.1 % (39.0-53.0); HGB 10.8 gm/dL (13.0-17.5); Lymphocytes # (A) 0.8 k/uL (1.0-4.8); Lymphocytes % (A) 12 %; MCH 34.3 pg (25.0-35.0); MCHC 33.5 g/dL (31.0-37.0); MCV 102.5 fL (80.0-100.0); Macrocytosis Moderate; Mean Platelet Volume 7.3; Monocytes # (A) 0.3 k/uL (0-1.0); Monocytes % (A) 4 %; Neutrophils # (A) 5.6 k/uL (1.3-7.7); Neutrophils % (A) 80 %; Platelet Count 229 k/uL (150-450); RBC 3.13 m/uL (4.30-5.90); RDW 16.6 % (11.5-15.5)
[2024-07-04 11:52] LABS: ALT 28 U/L (4-49); African American GFR (CKD) >90 (>60 ml/min/1.73 sqM); Anion Gap 6 mmol/L; Blood Urea Nitrogen 19 mg/dL (9-20); C Reactive Protein 2.2 mg/dL (<1.0); Calcium 8.8 mg/dL (8.4-10.2); Carbon Dioxide 26 mmol/L (22-30); Chloride 96 mmol/L (98-107); Glucose 77 mg/dL (74-99); Non-African American GFR(CKD) >90 (>60 ml/min/1.73 sqM); Sodium 128 mmol/L (137-145); Total Bilirubin 1.6 mg/dL (0.2-1.3)
[2024-07-04 11:57] LABS: NT-Pro-B-Type Natriuretic Pept 1310 pg/mL
[2024-07-04 12:12] LABS: AST 61 U/L (17-59); Albumin 3.6 g/dL (3.5-5.0); Alkaline Phosphatase 142 U/L (38-126); Potassium 5.1 mmol/L (3.5-5.1)
--- NOTE | 2024-07-04 13:11 | CT ---
EXAMINATION TYPE: CT chest angio for PE DATE OF EXAM: 07/04/2024 COMPARISON: 07/04/2016 HISTORY: 79-year-old male dyspnea, right lower extremity DVT, shortness of breath, assess for pe TECHNIQUE: Contiguous axial scanning of the chest performed with IV Contrast, patient injected with 1 00 mL of Isovue 370. Coronal/sagittal MIP reconstructions performed. CT DLP: 428.2 mGycm Automated exposure control for dose reduction was used. FINDINGS: Left anterior chest wall pacemaker generator. Since the streak and beam Mckeon artifact related to the patient's shoulder arthroplasty and pacemak er generator. Heart upper limits of normal in size without pericardial effusion. No flattening of the interventricu lar septum. Minimal refluxing contrast into the hepatic IVC. Aorta normal caliber with mild atherosclerotic arch calcifications. No thoracic lymphadenopathy identified. Satisfactory opacification of the pulmonary arterial system. The presence of breathing motion particu larly in the lower lung limits assessment of pulmonary emboli here. No large central or lobar branch embolus or definite embolus to the upper midlungs. Prominent dependent opacity at the lower lobes likely subpleural atelectasis minimal emphysematous ch anges. No pleural effusion. Additional patchy bibasilar opacity, likely atelectasis and scarring, unchanged from 2016. Visualized upper abdomen shows possible abnormal soft tissue thickening within the ascending colon, a xial image 123 and coronal image 69. Moderate burden in the visualized upper abdomen. Extensive DISH throughout the thoracic spine. Additional posterior fusion from T10 down beyond the fi eld-of-view. IMPRESSION: 1. COMBINATION OF SOME BREATHING MOTION AND EXTENSIVE METAL ARTIFACTS LIMITING THE EVALUATION. NO DEF INITE LARGE CENTRAL BRANCH embolus or pulmonary embolus in the upper or mid lungs. Many of the segmen dawit and more distal arterial branches of the lower lungs are nondiagnostic. 2. Prominent patchy bibasilar atelectasis and/or scarring. Some patchy change at the medial right bas e has increased from 2016. Correlate to exclude superimposed infiltrate. 3. Possible abnormal soft tissue thickening within the ascending colon partially visualized. If routi ne screening colonoscopy is not being performed, recommend direct visualization to exclude a colon ma ss. [facility], , 07/04/2024 1:09 PM
[2024-07-04 13:12] LABS: Partial Thromboplastin Time 26.1 sec (22.0-30.0); Prothrombin Time 11.4 sec (10.0-12.5)
[2024-07-04] MEDS: ACET/COD 300 MG/30 MG STARTER PACK 6 TAB BTL PO STA (13:52)
[2024-07-04 14:21] VITALS: BP 106/61; PULSE 82; RESP 18
[2024-07-04 22:57] LABS: Erythrocyte Sedimentation Rate 3 mm/Hr (0-20)
== END 2024-07-04 14:21 | disposition home or self-care (01) ==
LOC: EC 08:27
DX: I82.411 Acute embolism and thrombosis of right femoral vein (principal)
CPT/HCPCS: 36415; 71275; 80053; 83605; 83880; 84484; 85025; 85610; 85652; 85730; 86140; 99283